=== PATIENT | male | born 1980 | race Caucasian/White ===

== ENCOUNTER 2024-10-11 16:28 | Emergency (ER) | payer OTHER, SELFPAY ==
[2024-10-11 16:36] VITALS: BP 128/78; PULSE 60; TEMP 36.9; O2SAT 99; BMI 36.5
--- NOTE | 2024-10-11 16:46 | XR_ITS ---
The [address] [address] Patient Name: GRANT BELLA MRN: [id number] date: 1980 Sex: M Assigned Patient Location: ER Current Patient Location: ER Accession/Order Number: [id number] Exam Date: 10/11/2024 16:52 Report Date: 10/11/2024 17:24 At the request of: ALTAGRACIA LOCKHART Procedure: XR hand RT min 3V Exam: Radiographs: XR hand RT min 3V Reason for exam: pain, unsure of trauma Comparison: None XR/XR hand RT min 3V IMPRESSION: Unremarkable right hand radiographs. Electronically authenticated by: DOROTHY VANEGAS Date: 10/11/2024 17:24
--- NOTE | 2024-10-11 16:48 | ED.UPPEXIN1 ---
HPI HPI - Extremity Injury (Upper) General Chief Complaint: Extremity Injury, Upper Stated Complaint: right hand pain Time Seen by Provider: 10/11/24 16:35 Source: patient and family Mode of arrival: walk-in Limitations: no limitations History of Present Illness HPI narrative: 44-year-old male presents to the emergency department complaint of right hand pain. Locating pain at the base of his thumb. Has been fairly constant over past couple days, worsens with palpation, movement. 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 Denies any known blunt trauma, motor or sensory changes, paresthesias. Patient is right-handed Quality:? Hurts Severity:?Mild Timing:?Over the past few days, constant Context: Normal setting and activity? Modifying factors:?As above Associated symptoms: Swelling Related Data Home Medications ?Medication ?Instructions ?Recorded ?Confirmed albuterol sulfate 90 mcg/actuation 2 puff inhalation Q6H PRN 10/11/24 10/11/24 aerosol inhaler shortness of breath or wheezing amlodipine 10 mg tablet 10 mg PO DAILY 10/11/24 10/11/24 atorvastatin 20 mg tablet 20 mg PO DAILY 10/11/24 10/11/24 Allergies Allergy/AdvReac Type Severity Reaction Status Date / Time aspirin AdvReac Severe Vomiting Verified 10/11/24 16:40 Opioid HPI Opioid Management Most Recent Pain and Opioid Data: Last OCT Pain Assessment 10/11/24 16:54 Review of Systems ROS Narrative CONST: Denies activity change, weakness MS: + arthralgias.? + joint swelling SKIN: Denies color change, wound NEURO: Denies numbness, paresthesias, weakness PFSH PFSH Social History Little interest or pleasure in doing things: not at all Feeling down, depressed, or hopeless: not at all Exam Narrative Exam Narrative: Vital signs noted Nurses notes reviewed CONST: Nontoxic, well appearing, well nourished, in no distress.? HENT: normocephalic, atraumatic. CV: 2+ palpable right radial pulse MS: Right hand: + Mild tenderness,swelling to the region over his first metacarpal.? No tenderness to the remainder of the hand, fingers. Negative Zak sign.? No ecchymosis, discoloration, crepitus, deformity, instability, warmth.? Active ROM is full? Strength 5/5 NEURO: Sensory intact throughout and distal to the injury SKIN: intact, warm, dry.? No wound PSYCHIATRIC: normal mood, affect Constitutional Vital Signs, click to edit/add: Last Vital Signs Temp 98.4 F 10/11/24 16:36 Pulse 60 10/11/24 16:36 Resp 16 10/11/24 16:36 BP 128/78 10/11/24 16:36 Pulse Ox 99 10/11/24 16:36 O2 Del Method Room Air 10/11/24 16:36 Course Vital Signs Vital signs: Vital Signs Temperature 98.4 F 10/11/24 16:36 Pulse Rate 60 10/11/24 16:36 Respiratory Rate 16 10/11/24 16:36 Blood Pressure 128/78 10/11/24 16:36 Pulse Oximetry 99 10/11/24 16:36 Oxygen Delivery Method Room Air 10/11/24 16:36 Temperature 98.4 F 10/11/24 16:36 Pulse Rate 60 10/11/24 16:36 Respiratory Rate 16 10/11/24 16:36 Blood Pressure 128/78 10/11/24 16:36 Pulse Oximetry 99 10/11/24 16:36 Oxygen Delivery Method Room Air 10/11/24 16:36 MDM - Extremity Injury (Upper) MDM Narrative Medical decision making narrative: This is a pleasant 44-year-old male who presents to the emergency department for evaluation of right hand pain On arrival, afebrile, vital signs stable. On exam, nontoxic, well appearing patient, in no apparent distress. He has tenderness over the distal first metacarpal on the right. Range of motion full flexion, extension, opposition, abduction, abduction. Neurovascularly intact. Patient was given ibuprofen, ice was applied. Right hand x-ray imaging, per radiologist reveals no acute abnormality Favor right hand pain, sprain Fracture, dislocation less likely based on imaging History and Record Review Discussion with independent historian: Family Management Independent interpretation: Right hand x-ray: No fracture, dislocation, or other acute abnormality noted Patient placed in thumb spica splint. Disposition ? The patient was discharged. Patient placed in splint Patient advised rest, ice, elevation, compression Patient advised Ibuprofen/Tylenol as needed for pain Plan: Patient will be discharged to home. Condition at time of disposition: stable . ? Advised to follow up with primary referral provider, name and number placed on discharge paperwork. Advised to return for any worsening and/or development of new, concerning signs or symptoms PLEASE NOTE: Portions of the medical record may have been produced using electronic sales program manager and may contain errors with respect to translation of words which may not have been identified prior to finalization of the chart. Imaging Data Right Hand Xray: Radiologist's impression: ITS Impressions Hand X-Ray 10/11/24 16:46 IMPRESSION: Unremarkable right hand radiographs. Electronically authenticated by: DOROTHY VANEGAS Date: 10/11/2024 17:24 Discharge Plan Discharge Chief Complaint: Extremity Injury, Upper Clinical Impression: Sprain and strain of right hand, Arthralgia of right hand Patient Disposition: Home, Self-Care Time of Disposition Decision: 17:46 Condition: Good Mode of Transportation: Private Vehicle Prescriptions / Home Meds: No Action albuterol sulfate 90 mcg/actuation HFA aerosol inhaler 2 puff INHALATION Q6H PRN (Reason: shortness of breath or wheezing) amlodipine 10 mg tablet 10 mg PO DAILY atorvastatin 20 mg tablet 20 mg PO DAILY Print Language: Singaporean Instructions: Sprain (ED) Referrals: Jamar Reyes MD [Physician] - 1 week
[2024-10-11] MEDS: IBUPROFEN 600 MG TABLET PO (16:54)
== END 2024-10-11 18:01 | disposition home or self-care (01) ==
PROVIDERS: Emergency Provider Emergency Medicine
DX: S63.91XA Sprain of unspecified part of right wrist and hand, initial encounter (principal); S66.911A Strain of unspecified muscle, fascia and tendon at wrist and hand level, right hand, initial encounter; X58.XXXA Exposure to other specified factors, initial encounter; M25.541 Pain in joints of right hand
CPT/HCPCS: 73130; 99283